=== PATIENT | female | born 1970 | race Caucasian/White ===

== ENCOUNTER → 2017-07-08 18:25 | Outpatient (CLI) | payer OTHER, SELFPAY ==
[2017-07-12 11:03] LABS: HPV APTIMA, High Risk Negative (Negative)
== END ==
PROVIDERS: Visit Provider Nurse Practitioner Women's Health
DX: Z12.4 Encounter for screening for malignant neoplasm of cervix (principal)
CPT/HCPCS: 88175; G0145

== ENCOUNTER → 2017-07-21 08:17 | Outpatient (CLI) | payer OTHER, SELFPAY ==
[2017-07-21 12:56] LABS: Hemoglobin A1c 5.4 % (4.2-6.3)
[2017-07-21 13:05] LABS: Anion Gap 12 (5-15); BUN 10 mg/dL (7-18); BUN/Creat Ratio 10.2 RATIO (10-20); Calcium,Total 8.5 mg/dL (8.5-10.1); Chloride 110 mmol/L (98-107); Creatinine, Serum 0.98 mg/dL (0.55-1.02); EST Glomerular Filtration Rate 65 mL/min (>60); Est Glom Filt Rate - Afr Amer 78 mL/min (>60); Glucose 94 mg/dL (74-106); Potassium 4.1 mmol/L (3.5-5.1); Sodium Level 142 mmol/L (136-145); T4 Free Direct 0.81 ng/dL (0.76-1.46); Thyroid Stim Hormone (TSH) 2.85 uIU/mL (0.358-3.74)
== END ==
PROVIDERS: Family Provider Family Medicine; PCP Family Medicine; Visit Provider Family Medicine
DX: E88.81 Metabolic syndrome and other insulin resistance (principal); R94.6 Abnormal results of thyroid function studies
CPT/HCPCS: 36415; 80048; 83036; 84439; 84443

== ENCOUNTER → 2017-08-12 07:45 | Outpatient (CLI) | payer OTHER, SELFPAY ==
--- NOTE | 2017-08-12 07:45 | DT_ITS ---
This patient was seen during an EMR downtime August 11, 2017 - August 18, 2017. This patient may have a combination of paper and electronic documentation or all paper documentation. All documentation is viewable within the e-chart portion of [facility] for each patient visit.
--- NOTE | 2017-08-12 08:00 | BI_ITS ---
MAMMOGRAPHY - BILATERAL SCREENING REASON FOR EXAM: Female, 47 years old. Routine annual screening examination. PERTINENT HISTORY: FAM HX OF MAT GRANDMOTHER @ AGE 70 - BILAT REDUCTION 2000 - PREV [facility] TECHNIQUE: Digital bilateral breast nikhil (3D mammographic acquisition) in the CC and MLO projections. 2-D mediolateral oblique (MLO) and craniocaudad (CC) views of both breasts were obtained. CAD: Full Field Digital Mammography with Computer Added Detection was performed. COMPARISON: 06/24/2016 FINDINGS: Breast Composition: There are scattered areas of fibroglandular density. There is an asymmetric density at the lateral aspect of the left breast for which further evaluation by spot compression, exaggerated axillary view and ultrasound would be recommended. There are no suspicious calcifications. No other significant abnormalities are identified. BI/SCREENING MAMM (CAD), BILAT IMPRESSION: Further imaging evaluation recommended, as described above. (E) ASSESSMENT CATEGORY: BIRADS Category 0: Incomplete. Need additional imaging evaluation. A letter regarding these results will be sent to the patient by the facility within 30 days. Approximately 10% of breast cancers are not detected by mammography. A normal mammogram should not delay biopsy of a clinically suspicious abnormality. [id number] Electronically Signed: Jad Azul MD at 15:52 EDT Tel , Service support ,
== END ==
PROVIDERS: Family Provider Family Medicine; PCP Family Medicine; Visit Provider Nurse Practitioner Women's Health
DX: Z12.31 Encounter for screening mammogram for malignant neoplasm of breast (principal); N64.89 Other specified disorders of breast
CPT/HCPCS: 77063; 77067

== ENCOUNTER → 2017-09-01 08:51 | Outpatient (CLI) | payer OTHER, SELFPAY ==
--- NOTE | 2017-09-01 08:54 | US_ITS ---
STUDY: ULTRASOUND BREAST - LEFT REASON FOR EXAM: Female, 47 years old. Abnormal screening mammogram. TECHNIQUE: Axial and longitudinal images of the LEFT breast were performed with a high resolution ultrasound transducer. COMPARISON: Comparison is made with prior mammogram dated September 01, 2017 and August 12, 2017. FINDINGS: LEFT Breast: Ultrasound of the upper outer quadrant of the left breast was performed. There is a 7 mm x 9 mm x 3 mm lymph node at the 2:00 suppressed at 7 cm from the nipple. There is also evidence of a 3 mm x 5 mm x 3 mm slightly echogenic nodule at the 3:00 breast a 5 cm some nipple suggestive of a small lipoma. Routine annual mammographic follow-up is recommended. US/Breast Limited Unilateral IMPRESSION: Findings of a small lymph node and small lipoma in the upper outer quadrant as described. Routine mammographic follow-up is recommended. ASSESSMENT CATEGORY: BIRADS Category 2: Benign. A letter regarding these results will be sent to the patient by the facility within 30 days. Electronically Signed: Damon Read MD at 13:07 EDT Tel [phone], Service support ,
--- NOTE | 2017-09-01 09:00 | BI_ITS ---
MAMMOGRAPHY - UNILATERAL DIAGNOSTIC: LEFT BREAST REASON FOR EXAM: Female, 47 years old. Abnormal screening mammogram. PERTINENT HISTORY: Grandmother with breast cancer. TECHNIQUE: Spot views of the left breast in the craniocaudad view as well as an exaggerated craniocaudad view of the left breast were obtained. CAD: Full Field Digital Mammography with Computer Added Detection was performed. COMPARISON: Comparison is made with prior examination dated August 12, 2017. FINDINGS: Breast Composition: There are scattered areas of fibroglandular density. Asymmetry of breast tissue is seen in the upper lateral portion of the left breast. No other significant abnormalities are identified. BI/DIAG MAMM W/CAD, UNILAT IMPRESSION: Asymmetry of breast tissue is seen in the deep upper lateral aspect of the left breast. Correlation with ultrasound is recommended. ASSESSMENT CATEGORY: BIRADS Category 0: Incomplete. Need additional imaging evaluation. A letter regarding these results will be sent to the patient by the facility within 30 days. Approximately 10% of breast cancers are not detected by mammography. A normal mammogram should not delay biopsy of a clinically suspicious abnormality. Electronically Signed: Damon Read MD at 9:59 EDT Tel [phone], Service support ,
== END ==
PROVIDERS: Family Provider Family Medicine; PCP Family Medicine; Visit Provider Nurse Practitioner Women's Health
DX: R92.8 Other abnormal and inconclusive findings on diagnostic imaging of breast (principal)
CPT/HCPCS: 76642; 77065

== ENCOUNTER → 2018-09-04 | Outpatient (CLI) | payer OTHER, SELFPAY ==
[2018-07-20 15:06] VITALS: BMI 34.1
--- NOTE | 2018-09-04 07:18 | BI_ITS ---
MAMMOGRAPHY - BILATERAL SCREENING 3-D TOMOSYNTHESIS REASON FOR EXAM: Female, 48 years old. Bilateral Screening 3-D tomosynthesis PERTINENT HISTORY: No significant family history. TECHNIQUE: 2-D mammograms and 3-D Tomosynthesis of the breast (s) were performed. CAD was performed. COMPARISON: August 12, 2017 FINDINGS: The breast composition is of scattered fibroglandular tissue. No dense spiculated masses or suspicious microcalcifications are identified. No architectural distortion is identified. There is no skin thickening or retraction. There are benign small lymph nodes in both axillary regions. There has been no significant change since the prior study of August 12, 2017. BI/SCREEN MAMM (CAD) W/CRISTINA BILAT IMPRESSION: No mammographic signs of malignancy. Routine yearly mammograms recommended. ASSESSMENT CATEGORY: BIRADS Category 1: Negative. A letter regarding these results will be sent to the patient by the facility within 30 days. FOLLOW UP RECOMMENDATION: Yearly follow up mammogram recommended. (A) Approximately 10% of breast cancers are not detected by mammography. A normal mammogram should not delay biopsy of a clinically suspicious abnormality. Electronically Signed: Angela Pena, at 8:53 EDT Tel , Service support ,
== END | disposition home or self-care (01) ==
LOC: OPBI 07:14
PROVIDERS: Family Provider Family Medicine; PCP Family Medicine; Referring Provider Nurse Practitioner Women's Health; Visit Provider Nurse Practitioner Women's Health
DX: Z12.31 Encounter for screening mammogram for malignant neoplasm of breast (principal)
CPT/HCPCS: 77063; 77067

== ENCOUNTER → 2020-01-19 08:32 | Outpatient (CLI) | payer OTHER, SELFPAY ==
[2019-08-18 12:58] VITALS: BMI 34.1
[2020-01-19 12:14] LABS: Basophil# 0.06 X10^3/uL; Eosinophil# 0.26 X10^3/uL; Eosinophils% 4.2 % (0-5); Hematocrit 45.3 % (37-47); Hemoglobin 14.4 g/dL (12.0-15.0); Lymphocyte % 38.5 % (19-41); Mean Corp Hgb Conc 31.8 g/dL (32-36); Mean Corpuscular Hgb 29.9 pg (27.0-32.0); Monocyte# 0.53 X10^3/uL; Monocyte% 8.5 % (0-10); NRBC Flagged by Analyzer 0 % (0-5); Neutrophil # 2.97 X10^3/uL (2.7-7.7); Neutrophil % 47.6 % (47-70); Platelet Count 279 K/mm3 (150-450); RBC Distribution Width CV 13.5 % (11.6-14.6); RBC Distribution Width SD 46.7 fl (35.1-43.9); Red Blood Count 4.82 M/mm3 (4.2-5.4); White Blood Count 6.2 K/mm3 (4.4-11.0)
[2020-01-19 12:47] LABS: Hemoglobin A1c 5.4 % (3.8-5.6)
[2020-01-19 13:05] LABS: ALB/GLOB Ratio 0.8 RATIO (0.9-2.4); AST(SGOT) 38 U/L (15-37); Alanine Aminotransfer ALT/SGPT 63 U/L (13-56); Albumin, Serum 3.5 g/dL (3.2-5.0); Alkaline Phosphatase 49 U/L (45-117); Anion Gap 6 (5-15); BUN 11 mg/dL (7-18); BUN/Creat Ratio 11.4 RATIO (10-20); Calcium,Total 8.6 mg/dL (8.5-10.1); Chloride 107 mmol/L (98-107); Cholesterol 207 mg/dL (200); Creatinine, Serum 0.97 mg/dL (0.55-1.02); EST Glomerular Filtration Rate 65 mL/min (>60); Est Glom Filt Rate - Afr Amer 79 mL/min (>60); Globulin 4.2 g/dL (2.2-4.2); Glucose 87 mg/dL (74-106); High Density Lipoprotein 50 mg/dL; Potassium 3.9 mmol/L (3.5-5.1); Protein, Total 7.7 g/dL (6.4-8.2); Sodium Level 140 mmol/L (136-145); Thyroid Stim Hormone (TSH) 2.72 uIU/mL (0.358-3.74); Triglycerides 101 mg/dL; Very Low Density Lipoprotein 20 mg/dL (5-40)
== END ==
PROVIDERS: PCP Family Medicine; Visit Provider Family Medicine
DX: I10 Essential (primary) hypertension (principal); E88.81 Metabolic syndrome and other insulin resistance
CPT/HCPCS: 36415; 80053; 80061; 83036; 84443; 85025

== ENCOUNTER → 2020-08-29 12:16 | Outpatient (CLI) | payer OTHER, SELFPAY ==
[2020-08-14 12:55] VITALS: BMI 34.1
--- NOTE | 2020-08-29 12:18 | BI_ITS ---
MAMMOGRAPHY - BILATERAL SCREENING 3-D TOMOSYNTHESIS REASON FOR EXAM: Female, 50 years old. screening for breast cancer PERTINENT HISTORY: No significant family history. TECHNIQUE: 2-D mammograms and 3-D Tomosynthesis of the breast (s) were performed. CAD was performed. COMPARISON: 09/04/2018 FINDINGS: The breast composition is of scattered fibroglandular tissue Scattered benign calcifications are seen. No dense spiculated masses or suspicious microcalcifications are identified. No architectural distortion is identified. There is no skin thickening or retraction. Benign-appearing lymph nodes in the axillary areas bilaterally. There has been no significant change since the prior study 09/04/2018. BI/SCRN MAMM (CAD)W/CRISTINA BILAT IMPRESSION: No mammographic signs of malignancy. Routine yearly mammograms recommended. ASSESSMENT CATEGORY: BIRADS Category 1: Negative. A letter regarding these results will be sent to the patient by the facility within 30 days. FOLLOW UP RECOMMENDATION: Yearly follow up mammogram recommended. (A) Approximately 10% of breast cancers are not detected by mammography. A normal mammogram should not delay biopsy of a clinically suspicious abnormality. Electronically Signed: Angela Pena, at 13:59 EDT Tel , Service support ,
== END ==
PROVIDERS: PCP Family Medicine; Referring Provider Nurse Practitioner Women's Health; Visit Provider Nurse Practitioner Women's Health
DX: Z12.31 Encounter for screening mammogram for malignant neoplasm of breast (principal)
CPT/HCPCS: 77063; 77067

== ENCOUNTER → 2021-11-30 | Outpatient (CLI) | payer OTHER, SELFPAY ==
[2021-11-30 10:04] LABS: Absolute Lymphocyte Count 2.69 X10^3/uL (0.83-4.51); Absolute Neutrophil Count 3.4 X10^3/uL (2.0-7.7); Basophil# 0.02 X10^3/uL; Basophil% 0.3 % (0-1); Eosinophil# 0.02 X10^3/uL; Eosinophils% 0.3 % (0-5); Hematocrit 44.8 % (37-47); Hemoglobin 14.4 g/dL (12.0-15.0); Lymphocyte # 2.69 X10^3/ul (0.83-4.51); Lymphocyte % 39.6 % (19-41); Mean Corp Hgb Conc 32.1 g/dL (32-36); Mean Corpuscular Hgb 30.6 pg (27.0-32.0); Mean Corpuscular Volume 95.1 fL (81-99); Mean Platelet Vol. 11.4 fl (6.2-12.0); Monocyte# 0.61 X10^3/uL; NRBC Flagged by Analyzer 0 % (0-5); Neutrophil # 3.44 X10^3/uL (2.7-7.7); Neutrophil % 50.5 % (47-70); Platelet Count 275 K/mm3 (150-450); RBC Distribution Width CV 13.5 % (11.6-14.6); RBC Distribution Width SD 48.1 fl (35.1-43.9); Red Blood Count 4.71 M/mm3 (4.2-5.4); White Blood Count 6.8 K/mm3 (4.4-11.0)
[2021-11-30 10:35] LABS: ALB/GLOB Ratio 0.9 RATIO (0.9-2.4); AST(SGOT) 25 U/L (15-37); Alanine Aminotransfer ALT/SGPT 39 U/L (13-56); Albumin, Serum 3.5 g/dL (3.2-5.0); Alkaline Phosphatase 49 U/L (45-117); Anion Gap 7 (5-15); BUN 11 mg/dL (7-18); BUN/Creat Ratio 11.6 RATIO (10-20); Calcium,Total 8.7 mg/dL (8.5-10.1); Chloride 109 mmol/L (98-107); Cholesterol 200 mg/dL (200); Creatinine, Serum 0.95 mg/dL (0.55-1.02); EST Glomerular Filtration Rate 66 mL/min (>60); Est Glom Filt Rate - Afr Amer 80 mL/min (>60); Globulin 4.1 g/dL (2.2-4.2); Glucose 95 mg/dL (74-106); High Density Lipoprotein 46 mg/dL; Potassium 4.1 mmol/L (3.5-5.1); Protein, Total 7.6 g/dL (6.4-8.2); Sodium Level 141 mmol/L (136-145); Thyroid Stim Hormone (TSH) 2.48 uIU/mL (0.358-3.74); Triglycerides 102 mg/dL; Very Low Density Lipoprotein 20 mg/dL (5-40)
== END | disposition home or self-care (01) ==
LOC: MTLAB 09:06
PROVIDERS: PCP Family Medicine; Referring Provider Family Medicine; Visit Provider Family Medicine
DX: R94.6 Abnormal results of thyroid function studies (principal); I10 Essential (primary) hypertension; E66.9 Obesity, unspecified
CPT/HCPCS: 36415; 80053; 80061; 84443; 85025

== ENCOUNTER → 2022-01-11 | Outpatient (CLI) | payer OTHER, SELFPAY ==
--- NOTE | 2022-01-11 07:19 | BI_ITS ---
MAMMOGRAPHY - BILATERAL SCREENING REASON FOR EXAM: Female, 51 years old. Routine annual screening examination. PERTINENT HISTORY: Grandmother with breast cancer. History of prior bilateral breast reduction surgery. Occasional bilateral left breast pain. TECHNIQUE: Digital bilateral breast cristina (3D mammographic acquisition) in the CC and MLO projections. 2-D mediolateral oblique (MLO) and craniocaudad (CC) views of both breasts were obtained. CAD: Full Field Digital Mammography with Computer Added Detection was performed. COMPARISON: Comparison is made with prior study dated 08/29/2020 and 09/04/2018. FINDINGS: Breast Composition: There are scattered areas of fibroglandular density. There are no dominant masses or suspicious calcifications. Stable benign-appearing bilateral axillary lymph nodes. No other significant abnormalities are identified. There has been no significant change since the prior study. BI/SCRN MAMM (CAD)W/CRISTINA BILAT IMPRESSION: Stable bilateral screening mammogram. Yearly follow-up mammogram recommended. (A) ASSESSMENT CATEGORY: BIRADS Category 2: Benign. A letter regarding these results will be sent to the patient by the facility within 30 days. Approximately 10% of breast cancers are not detected by mammography. A normal mammogram should not delay biopsy of a clinically suspicious abnormality. [id number] Electronically Signed: Damon Read MD at 9:01 EDT ,
== END | disposition home or self-care (01) ==
LOC: OPBI 07:18
PROVIDERS: PCP Family Medicine; Visit Provider Nurse Practitioner Women's Health
DX: Z12.31 Encounter for screening mammogram for malignant neoplasm of breast (principal); Z80.3 Family history of malignant neoplasm of breast
CPT/HCPCS: 77063; 77067

== ENCOUNTER → 2022-01-16 | Outpatient (CLI) | payer OTHER, SELFPAY ==
--- NOTE | 2022-01-16 13:10 | US_ITS ---
STUDY: ULTRASOUND OF THE FEMALE PELVIS - COMPLETE REASON FOR EXAM: Female, 51 years old. Bleeding LMP: 12/16/2021. TECHNIQUE: Transabdominal and Transvaginal TECHNICAL QUALITY: Adequate. COMPARISON: None. FINDINGS: The uterus is anteverted and is in a midline position. The uterus measures 9.7 cm x 4.9 cm x 5.6 cm. There is a Nabothian cyst of the cervix. The endometrium measures 6.0 mm in thickness, and is hyperechoic. There is no demonstrated endometrial mass. There is a 1.6 cm x 1.4 cm x 1.5 cm uterine fibroid. I.U.D. - The patient does not have an I.U.D. The right ovary is visualized. The right ovary measures 2.3 cm x 2.1 cm x 1.8 cm. There is no right ovarian cyst or ovarian mass. There is no visualized right adnexal mass or complex lesion. There is normal arterial and normal venous vascularity. The left ovary is visualized. The left ovary measures 1.6 cm x 1.9 cm x 0.9 cm. There is no left ovarian cyst or ovarian mass. There is no visualized left adnexal mass or complex lesion. There is normal arterial and normal venous vascularity. There is no fluid in the cul-de-sac. The pre void volume of the bladder was 268 ml. US/Pelvic (Non ) IMPRESSION: Small uterine fibroid. Electronically Signed: Damon Read MD at 14:49 EST ,
== END | disposition home or self-care (01) ==
LOC: OPUS 13:08
PROVIDERS: PCP Family Medicine; Visit Provider Nurse Practitioner Women's Health
DX: N92.0 Excessive and frequent menstruation with regular cycle (principal)
CPT/HCPCS: 76830; 76856

== ENCOUNTER 2022-01-29 17:31 | Outpatient (CLI) | payer OTHER, SELFPAY ==
--- NOTE | 2022-01-29 15:15 | EMB_PTH ---
PATIENT: SHANDA CUMMINGS LOC: [facility] U#:[id number] AGE/SX: 51/F ROOM: RE01/29/[address]: FELIPA Lowery : 1970 BED: DIS: 01/29/2022 SPEC #: [id number] RECD: 01/29/22 17:27 STATUS: BRENDAN REQ #: [id number] TREVOR: 01/29/22 15:[address]: Susannah Arroyo NP DEPT: SURGICAL PATHOLOGY RECD BY: Heather Richard ENTERED: 01/30/22 08:47 SP TYPE: ENDOM BX/C FLAVIO DR: Dr. Jm Lea MD Tissues: Endometrium, NOS Procedures: Surgery Specimen Level IV HEADER OPERATION: Endometrial biopsy PRE-OP DIAGNOSIS: Abnormal uterine bleeding TISSUE SUBMITTED: Endometrial tissue MICROSCOPIC DIAGNOSIS Endometrial biopsy: Secretory endometrium. TERRY:silvino 02/01/2022 MICROSCOPIC DESCRIPTION Slides are reviewed. GROSS DESCRIPTION Received is one container labeled with the patient's name and not further designated. The specimen consists of multiple fragments of hemorrhagic soft tissue that in aggregate measure 2.5 x 1.5 x 0.2 cm. The specimen is totally submitted in one cassette. / SJ:silvino 01/30/2022 TC:4 CPT: 13159
== END 2022-01-29 23:59 | disposition home or self-care (01) ==
PROVIDERS: PCP Family Medicine; Visit Provider Nurse Practitioner Women's Health
DX: N93.9 Abnormal uterine and vaginal bleeding, unspecified (principal)
CPT/HCPCS: 88305

== ENCOUNTER 2022-04-01 09:18 | Emergency (ER) | payer OTHER, SELFPAY ==
[2022-04-01 09:19] VITALS: BP 155/105; PULSE 87; RESP 17; TEMP 35.6; O2SAT 100; BMI 36.3
--- NOTE | 2022-04-01 09:41 | CT_ITS ---
STUDY: CT ABDOMEN AND PELVIS WITH CONTRAST REASON FOR EXAM: Female, 51 years old. Left lower quadrant abdominal pain RADIATION DOSAGE (If Supplied By Facility): CTDIvol = ( 18.19 ) mGy, DLP = ( 1241.18 ) mGycm TECHNIQUE: Transaxial images were obtained from the dome of the diaphragm to the symphysis pubis without oral contrast. IV 100mL Isovue-370 was administered. Sagittal and coronal images were reconstructed. Individualized dose optimization techniques were used for this CT. COMPARISON: None. FINDINGS: The visualized lung bases are unremarkable. The visualized portions of the heart are within normal limits. There is decreased attenuation of the liver consistent with steatosis. There is a 1.4 cm x 1.1 cm well-defined hypodense nodule in the anterior aspect of the midportion of the right lobe of the liver. Correlation with ultrasound is recommended for further evaluation. Normal gallbladder and extrahepatic biliary system. Normal spleen. Normal pancreas. Normal bilateral adrenal glands. There is a 1.4 cm cyst in the mid lateral aspect of the right kidney. There is a 5.7 cm x 5.2 cm cyst in the upper medial portion of the left kidney. There is a small hiatal hernia. Normal small intestine. There are scattered colonic diverticula consistent with diverticulosis. The appendix is visualized and appears normal. Normal abdominal aorta. Normal inferior vena cava. Normal retroperitoneum. Normal urinary bladder. There is a 3.9 cm x 3.7 cm cyst in the left adnexa. Bilateral tubal ligation clips are seen. Normal abdominal wall. Normal osseous structures. CT/Abdomen/Pelvis W IV Cont ONLY IMPRESSION: Fatty infiltration of the liver. 1.4 cm x 1.1 cm well-defined hypodense nodule in the anterior aspect of the midportion of the right lobe of the liver. Correlation with ultrasound is recommended. Bilateral renal cysts more prominent on the left side. 3.9 signed by 3.7 cm cyst in the left adnexa. Electronically Signed: Damon Read MD at 12:10 EST ,
[2022-04-01 10:21] LABS: Bacteria 0 SEEN /hpf (None Seen); Mucous, Urine 0 SEEN /hpf (<or=2+)
[2022-04-01 10:26] LABS: Glucose, Dipstick Normal (Normal); Ketone-Dipstick Negative (Negative); Leukocyte Esterase-Dipstick 25 /ul (Negative); Nitrite-Dipstick Negative (Negative); Occult Blood-Urine 50 /ul (Negative); Protein-Dipstick Negative (Negative); Specific Gravity, Urine 1.015 (1.002-1.030); Urine Bilirubin Dipstick Negative (Negative); Urine Urobilinogen Normal (Normal); Urine pH 6.5 (5.0 - 8.0)
[2022-04-01] MEDS: 0.9% Normal Saline 1,000 ML 250 ML IV (10:34)
[2022-04-01 10:36] LABS: Color, Urine Yellow (Yellow); Urine Clarity Clear (Clear)
[2022-04-01 10:44] LABS: Absolute Lymphocyte Count 2.35 X10^3/uL (0.83-4.51); Absolute Neutrophil Count 5.5 X10^3/uL (2.0-7.7); Basophil# 0.04 X10^3/uL; Basophil% 0.5 % (0-1); Eosinophil# 0.06 X10^3/uL; Eosinophils% 0.7 % (0-5); Hemoglobin 14.4 g/dL (12.0-15.0); Lymphocyte # 2.35 X10^3/ul (0.83-4.51); Lymphocyte % 27.2 % (19-41); Mean Corpuscular Volume 93.8 fL (81-99); Mean Platelet Vol. 11.2 fl (6.2-12.0); Monocyte# 0.64 X10^3/uL; Monocyte% 7.4 % (0-10); NRBC Flagged by Analyzer 0 % (0-5); Neutrophil # 5.52 X10^3/uL (2.7-7.7); Neutrophil % 63.9 % (47-70); Platelet Count 254 K/mm3 (150-450); RBC Distribution Width CV 13.4 % (11.6-14.6); RBC Distribution Width SD 46.1 fl (35.1-43.9); White Blood Count 8.6 K/mm3 (4.4-11.0)
--- NOTE | 2022-04-01 11:01 | EDS_ITS ---
HPI HPI - GI History of Present Illness Chief Complaint: Abd Pain Detail of Chief Complaint: Left-sided abdominal pain Informant: patient Abdominal Pain/Flank Pain Onset: Yesterday Context: Sudden Onset Timing: Continuous and Waxes and wanes Quality: Aching Location: LUQ and LLQ Current Severity: Mild Maximum Severity: Severe Worsened by: Car ride and Movement Relieved by: Nothing Nausea/Vomiting/Emesis GI Symptom: Positive for Nausea; Negative for Vomiting Diarrhea/Melena/Hematochezia GI Symptom: Positive for - (Patient denies constipation.); Negative for Diarrhea, Melena or Hematochezia Associated Symptoms Associated Symptoms: Negative for Dysuria, Frequency, Hematuria or Urgency Narrative Narrative: Patient is a 51-year-old woman who presented because of left-sided pain. She denies history of diverticulosis or diverticulitis. She denies history of renal ureterolithiasis. She denies dysuria, frequency, urgency or hematuria. She states change in position wearing tight clothing sitting up causes her increased pain. She also makes the comment that she cannot find a position of comfort. She denies fever, chills night sweats. She does report nausea. She denies vomiting, diarrhea or constipation. She denies history of ovarian cyst. She is status post bilateral tubal ligation. Patient office visit authored by Susannah Arroyo indicates patient was seen for menorrhagia with regular cycles. She did have an ultrasound which was unremarkable. Patient denies leg pain, swelling or discoloration. Patient denies myalgias or arthralgias. Prior similar symptoms: No Recent Illness/Hospitalization: No PFSH PFSH Home Medications cetirizine 10 mg tablet (24Hour Allergy) 10 mg PO DAILY PRN ALLERGIES 08/14/20 [History Last Taken Unknown] lisinopril 2.5 mg tablet 2.5 mg PO DAILY 08/14/20 [History Last Taken Unknown] mv-min-vit C-ascorb Fz-Avj-Icb-herb #124 333 mg-1.7 mg chewable tablet (Airborne (ascorbate sodium)) tab PO 08/14/20 [History Last Taken Unknown] escitalopram oxalate 10 mg tablet (Lexapro) 10 mg PO DAILY 01/02/22 [History Last Taken Unknown] fluticasone propionate 50 mcg/actuation nasal spray,suspension (Flonase Allergy Relief) 1 spray intranasal DAILY 01/02/22 [History Last Taken Unknown] norethindrone (contraceptive) 0.35 mg tablet (Lulu) 0.35 mg PO QDAY #84 tabs 01/02/22 [Rx Last Taken Unknown] Allergy/AdvReac Type Severity Reaction Status Date / Time nitrofurantoin Allergy Mild rash Verified 04/01/22 09:19 [From Macrodantin] penicillin V Allergy Mild vomiting, Verified 04/01/22 09:19 diarrhea trimethoprim Allergy Mild rash Verified 04/01/22 09:19 Family History Mother Diabetes Father Diabetes Hypertension Heart disease Surgical History Status post breast reduction Tubal ligation status Social History (Updated 04/01/22 @ 11:[address] 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 [employer] ED Constitutional Constitutional ED: Denies chills, fever(s), subjective, sweats or weight loss ENT ENT ED: Denies ear pain, rhinorrhea or sore throat Cardiovascular Cardiovascular: Denies chest pain or palpitations Respiratory/Chest Respiratory/Chest: Denies cough, dyspnea or dyspnea on exertion Gastrointestinal Gastrointestinal: Reports abdominal pain and nausea; Denies constipation, diarrhea, melena or vomiting Genitourinary Genitourinary ED: Reports LMP (females 10-50) Details: Comment: (Approximately 2 weeks ago., Patient is status post bilateral tubal ligation); Denies dysuria, hematuria or urinary frequency Musculoskeletal Musculoskeletal: Denies arthralgias, back pain, myalgias or neck pain Integumentary Denies Abrasions or rash Neurologic Neurologic: Denies headache(s), paresthesias or weakness Psychiatric Psychiatric: Denies anxiety Hematologic/Lymphatic Hematologic/Lymphatic: Denies easy bleeding, easy bruising or lymphadenopathy EXAM Physical Exam Const Vital Signs: 04/01/22 09:19 04/01/22 14:34 Temperature 96.0 F L 98.5 F Temperature Source Temporal Oral Pulse Rate 87 83 Respiratory Rate 17 18 Blood Pressure 155/105 H 127/77 H Blood Pressure Mean 121 93 Pulse Ox 100 99 Oxygen Delivery Method Room Air Room Air Positive well nourished, well developed and obese General Appearance ED: well developed and NAD; Negative for pallor Nutritional Appearance: obese HEENT Reports moist mucous membranes HEENT Narrative: Nares patent. Ears normal. Mucosa moist. No abnormality the posterior pharynx. normocephalic and atraumatic Eyes PERRL and EOMs intact bilaterally General Eye ED: Negative for pale conjunctiva or scleral icterus Neck no lymphadenopathy, supple and no JVD Resp normal respiratory effort and clear to auscultation bilaterally Cardio regular rate, regular rhythm, S1 normal heart sound, S2 normal heart sound and no murmurs GI non-distended and no masses; Negative for non-tender GI Narrative: Patient has percussion tenderness left lower quadrant. There is guarding. Bowel sounds are diminished. Patient complains of pain left lower quadrant assessing for CVA tenderness. Auscultation: hypoactive bowel sounds Palpation: soft, tender, guarding and rebound tenderness present; Negative for rigid, hepatomegaly, splenomegaly, hernia, mass or pulsatile mass Back/Spine no CVA tenderness Cervical Spine: Negative for cervical spine tenderness Thoracic Spine / Upper Back: Negative for thoracic spinal tenderness Lumbar Spine / Lower Back: Negative for lumbar spinal tenderness Extremity full ROM General Extremety ED: Negative for edema or tenderness General Extremity: Negative for edema Neuro CN's II-XII intact bilaterally, moves all extremities and no sensory deficits noted Sensorium / Orientation: alert Psych mental status grossly normal and thought process normal Skin no wounds General Skin Exam: Negative for jaundice or pallor Lesions: no lesions Rashes: no rashes MDM MDM MDM Narrative Medical decision making narrative: With patient having peritoneal findings left lower quadrant concerned that this may represent diverticulitis. Unusual presentation for ureteral stone causing obstruction infection, need to consider malignancy in light of her age. Also need to consider gynecologic pathology in light of her history of problems with menstruating and ovarian cyst. Office notes for last OB visit were reviewed and summarized in the HPI near Will obtain CBC, electrolyte panel, UA and CT to evaluate patient's left lower quadrant abdominal pain. Lab Data Attestation: I reviewed the patient's lab results. Lab results narrative: CBC is unremarkable. Basic metabolic panel is unremarkable. UA is unremarkable. Macro was positive for leukoesterase, 25 and 0-5 WBCs with no bacteria. Labs: Laboratory Results - last 24 hr 04/01/22 04/01/22 04/01/22 10:15 10:30 10:30 WBC 8.6 RBC 4.80 Hgb 14.4 Hct 45.0 MCV 93.8 MCH 30.0 MCHC 32.0 RDW Std Deviation 46.1 H RDW Coeff of Juan Jose 13.4 Plt Count 254 MPV 11.2 Immature Gran % (Auto) 0.300 Neut % (Auto) 63.9 Lymph % (Auto) 27.2 Dane % (Auto) 7.4 Eos % (Auto) 0.7 Baso % (Auto) 0.5 Absolute Neuts (auto) 5.5 Absolute Lymphs (auto) 2.35 Nucleated RBC % 0 Sodium 140 Potassium 3.9 Chloride 109 H Carbon Dioxide 23.0 Anion Gap 8 BUN 10 Creatinine 0.88 Estim Creat Clear Calc 68.06 Est GFR (MDRD) Af Amer 87 Est GFR (MDRD) Non-Af 72 BUN/Creatinine Ratio 11.3 Glucose 97 Calcium 9.2 Urine Color Yellow Urine Clarity Clear Urine pH 6.5 Ur Specific [place] 1.015 Urine Protein Negative Urine Glucose (UA) Normal Urine Ketones Negative Urine Occult Blood 50 H Urine Nitrite Negative Urine Bilirubin Negative Urine Urobilinogen Normal Ur Leukocyte Esterase 25 H Urine RBC 0-5 SEEN Urine WBC 0-5 SEEN Ur Squamous Epith Cells 0-5 SEEN Urine Bacteria 0 SEEN Urine Mucus 0 SEEN Radiography Diagnostic Testing: Clinical Impression(s) from Imaging Studies Abdomen/Pelvis CT 04/01/22 09:41 IMPRESSION: Fatty infiltration of the liver. 1.4 cm x 1.1 cm well-defined hypodense nodule in the anterior aspect of the midportion of the right lobe of the liver. Correlation with ultrasound is recommended. Bilateral renal cysts more prominent on the left side. 3.9 signed by 3.7 cm cyst in the left adnexa. Electronically Signed: Damon Read MD at 12:10 EST , Abdomen Ultrasound 04/01/22 12:52 IMPRESSION: Mild hepatomegaly. Fatty infiltration of the liver. 1.1 cm x 1.1 cm x 0.9 sinus slightly hyperechoic solid nodule in the anterior right lobe of the liver suggestive of a small hemangioma. Right renal cyst. Electronically Signed: Damon Read MD at 14:55 EST , CT of the abdomen pelvis with IV contrast reveals a large solitary left renal cyst. There appears to be inflammatory changes left lower quadrant. Awaiting formal read by radiologist. Treatment and Re-Evaluation Narrative: She was informed of the CAT scan result and the ultrasound result. Plan is to discharge to home. Discharge Plan Triage Chief Complaint: Abd Pain ED Provider: Pelon Trevino Dx/Rx/DC Orders Clinical Impression: Cyst of left ovary, HTN (hypertension), Renal cysts, acquired, bilateral, Hemangioma of liver Instructions: ED Ovarian Cyst Prescriptions: No Action lisinopril 2.5 mg tablet 2.5 mg PO DAILY cetirizine [24Hour Allergy] 10 mg tablet 10 mg PO DAILY PRN (Reason: ALLERGIES) Airborne (ascorbate sodium) 333-1.7 mg tablet,chewable PO escitalopram oxalate [Lexapro] 10 mg tablet 10 mg PO DAILY fluticasone propionate [Flonase Allergy Relief] 50 mcg/actuation spray,suspension 1 spray intranasal DAILY Rx Instructions: administer into each nostril norethindrone (contraceptive) [Lulu] 0.35 mg tablet 0.35 mg PO QDAY Qty: 84 4RF Rx Instructions: start day 1 of menstrual cycle Primary Care Provider: Jae Velazco Referrals: Jae Velazco MD [Primary Care Provider] - As Needed Activity Restrictions/Additional Instructions: Call your OB for follow-up in 1 to 2 weeks. Disposition Disposition: Home, Self Care
[2022-04-01 11:04] LABS: Red Blood Cells-Urine 0-5 SEEN /hpf (0-5); Squamous Epithelial Cells - UA 0-5 SEEN /hpf (5-10); White Blood Cells 0-5 SEEN /hpf (0-5)
[2022-04-01 11:12] LABS: Anion Gap 8 (5-15); BUN 10 mg/dL (7-18); BUN/Creat Ratio 11.3 RATIO (10-20); Calcium,Total 9.2 mg/dL (8.5-10.1); Chloride 109 mmol/L (98-107); Creatinine, Serum 0.88 mg/dL (0.55-1.02); EST Glomerular Filtration Rate 72 mL/min (>60); Est Glom Filt Rate - Afr Amer 87 mL/min (>60); Estimated Creatinine Clearance 68.06 ml/min; Glucose 97 mg/dL (74-106); Potassium 3.9 mmol/L (3.5-5.1); Sodium Level 140 mmol/L (136-145)
--- NOTE | 2022-04-01 12:52 | US_ITS ---
STUDY: ABDOMINAL ULTRASOUND - RIGHT UPPER QUADRANT REASON FOR VISIT: Female, 51 years old Nodule noted right lobe liver on CT TECHNIQUE: Ultrasound evaluation of the right upper quadrant was performed with real-time and static west-scale imaging. TECHNICAL QUALITY: Adequate. COMPARISON: Comparison is made with prior CT scan the abdomen and pelvis done earlier today. FINDINGS: Liver: The liver measures 18.5 cm. There is increased echogenicity consistent with fatty infiltration. The bile ducts are within normal limits. There is hepatic color flow. The direction of portal flow is hepatopetal. There is evidence of a 1.1 cm x 1.1 cm by 0.9 cm slightly hyperechoic solid nodule in the anterior right lobe of the liver. This corresponds with the CT findings. This is not a typical cyst. This most likely represents an hemangioma. Gallbladder: Normal distended gallbladder. The gallbladder wall measures 1.8 mm. There is a negative sonographic Cook''s sign. There is no pericholecystic fluid. There are no gallstones. Common Bile Duct (C.B.D.): The common bile duct measures 6.4 mm. Pancreas: Normal size of the head, body and tail of the pancreas. There is normal echogenicity of the pancreas. There is no demonstrated pancreatic mass or cyst. Right Kidney: Normal size of the right kidney. The right kidney measures 12.9 cm x 5.7 cm x 4.3 cm. Normal renal cortex. The right cortex measures 1.1 cm. There is a 1.6 cm x 1.7 cm x 1 cm cyst in the mid aspect of the right kidney. There is no right hydronephrosis. US/Abdomen Limited IMPRESSION: Mild hepatomegaly. Fatty infiltration of the liver. 1.1 cm x 1.1 cm x 0.9 sinus slightly hyperechoic solid nodule in the anterior right lobe of the liver suggestive of a small hemangioma. Right renal cyst. Electronically Signed: Damon Read MD at 14:55 EST ,
[2022-04-01 14:34] VITALS: BP 127/77; PULSE 83; RESP 18; TEMP 36.9; O2SAT 99
[2022-04-01 16:35] VITALS: BP 130/71; PULSE 70; RESP 15; O2SAT 97
== END 2022-04-01 16:43 | disposition home or self-care (01) ==
PROVIDERS: Emergency Provider Emergency Medicine; PCP Internal Medicine; Visit Provider Emergency Medicine
DX: N83.202 Unspecified ovarian cyst, left side (principal); N28.1 Cyst of kidney, acquired; D18.09 Hemangioma of other sites; I10 Essential (primary) hypertension; E66.9 Obesity, unspecified; Z68.36 Body mass index [BMI] 36.0-36.9, adult; Z79.899 Other long term (current) drug therapy
CPT/HCPCS: 74177; 76705; 80048; 81001; 85025; 99284; J7030; Q9967

== ENCOUNTER → 2022-04-11 | Outpatient (CLI) | payer OTHER, SELFPAY ==
--- NOTE | 2022-04-11 08:04 | US_ITS ---
STUDY: ULTRASOUND OF THE FEMALE PELVIS - COMPLETE REASON FOR EXAM: Female, 51 years old. LT OVARIAN CYST/PAIN LMP: Patient is postmenopausal. TECHNIQUE: Transabdominal and Transvaginal TECHNICAL QUALITY: Adequate. COMPARISON: Comparison is made with prior CT scan of abdomen and pelvis dated 04/01/2022 and prior sonogram of the pelvis dated 01/16/2022. FINDINGS: The uterus is anteverted and is in a midline position. The uterus measures 9.3 cm x 5.9 cm x 5.4 cm. Normal uterine cervix. The endometrium is thickened for a postmenopausal patient and measures 6.1 mm in thickness, and is hyperechoic. There is no demonstrated endometrial mass. Uterine fibroids. The largest is in the fundal portion of the uterus measuring 2.1 cm x 2 cm x 1.3 cm. I.U.D. - The patient does not have an I.U.D. The right ovary is visualized. The right ovary measures 2.3 cm x 2.3 cm x 2.4 cm. There is no right ovarian cyst or ovarian mass. There is no visualized right adnexal mass or complex lesion. There is normal arterial and normal venous vascularity. The left ovary is visualized. The left ovary measures 3.7 cm x 3.8 cm x 3.6 cm. There is a 2.9 cm x 3.2 cm x 3.4 cm left ovarian cyst. There is no visualized left adnexal mass or complex lesion. There is normal arterial and normal venous vascularity. There is no fluid in the cul-de-sac. The pre void volume of the bladder was 223 ml.. US/Pelvic (Non ) IMPRESSION: Uterine fibroids. 2.97 x 3.27 x 3.4 cm left ovarian cyst. Electronically Signed: Damon Read MD at 13:13 EST ,
== END | disposition home or self-care (01) ==
PROVIDERS: PCP Internal Medicine; Referring Provider Nurse Practitioner Women's Health; Visit Provider Nurse Practitioner Women's Health
DX: R10.2 Pelvic and perineal pain (principal); N83.202 Unspecified ovarian cyst, left side
CPT/HCPCS: 76830; 76856; 93976

== ENCOUNTER → 2022-09-27 | Outpatient (CLI) | payer OTHER, SELFPAY ==
[2022-09-27 13:14] LABS: ALB/GLOB Ratio 0.9 RATIO (0.9-2.4); AST(SGOT) 21 U/L (15-37); Alanine Aminotransfer ALT/SGPT 38 U/L (13-56); Albumin, Serum 3.5 g/dL (3.2-5.0); Alkaline Phosphatase 47 U/L (45-117); Anion Gap 6 (5-15); BUN 12 mg/dL (7-18); BUN/Creat Ratio 13.1 RATIO (10-20); Calcium,Total 9.2 mg/dL (8.5-10.1); Chloride 108 mmol/L (98-107); Creatinine, Serum 0.92 mg/dL (0.55-1.02); EST Glomerular Filtration Rate 68 mL/min (>60); Est Glom Filt Rate - Afr Amer 83 mL/min (>60); Globulin 3.7 g/dL (2.2-4.2); Glucose 97 mg/dL (74-106); Potassium 3.9 mmol/L (3.5-5.1); Protein, Total 7.2 g/dL (6.4-8.2); Sodium Level 141 mmol/L (136-145)
== END | disposition home or self-care (01) ==
LOC: BIMLAB 11:27
PROVIDERS: PCP Internal Medicine; Referring Provider Internal Medicine; Visit Provider Internal Medicine
DX: I10 Essential (primary) hypertension (principal)
CPT/HCPCS: 36415; 80053

== ENCOUNTER → 2022-12-16 | Outpatient (CLI) | payer OTHER, SELFPAY ==
[2022-12-16 15:13] LABS: Absolute Lymphocyte Count 3.77 X10^3/uL (0.83-4.51); Absolute Neutrophil Count 4.3 X10^3/uL (2.0-7.7); Basophil# 0.03 X10^3/uL; Basophil% 0.3 % (0-1); Eosinophil# 0.11 X10^3/uL; Eosinophils% 1.2 % (0-5); Hematocrit 43.8 % (37-47); Hemoglobin 14.1 g/dL (12.0-15.0); Lymphocyte # 3.77 X10^3/ul (0.83-4.51); Lymphocyte % 41.9 % (19-41); Mean Corp Hgb Conc 32.2 g/dL (32-36); Mean Corpuscular Hgb 30.1 pg (27.0-32.0); Mean Corpuscular Volume 93.6 fL (81-99); Monocyte% 8.9 % (0-10); NRBC Flagged by Analyzer 0 % (0-5); Neutrophil # 4.26 X10^3/uL (2.7-7.7); Neutrophil % 47.5 % (47-70); Platelet Count 272 K/mm3 (150-450); RBC Distribution Width CV 13.3 % (11.6-14.6); RBC Distribution Width SD 45.4 fl (35.1-43.9); Red Blood Count 4.68 M/mm3 (4.2-5.4)
[2022-12-16 15:52] LABS: AST(SGOT) 18 U/L (15-37); Alanine Aminotransfer ALT/SGPT 39 U/L (13-56); Albumin, Serum 3.8 g/dL (3.2-5.0); Alkaline Phosphatase 50 U/L (45-117); Anion Gap 8 (5-15); BUN 9 mg/dL (7-18); Calcium,Total 8.7 mg/dL (8.5-10.1); Chloride 106 mmol/L (98-107); Creatinine, Serum 0.82 mg/dL (0.55-1.02); EST Glomerular Filtration Rate 78 mL/min (>60); Est Glom Filt Rate - Afr Amer 94 mL/min (>60); Globulin 3.7 g/dL (2.2-4.2); Glucose 84 mg/dL (74-106); Potassium 3.6 mmol/L (3.5-5.1); Protein, Total 7.5 g/dL (6.4-8.2); Sodium Level 136 mmol/L (136-145)
[2022-12-16 15:53] LABS: Vitamin B12 471 pg/mL (211-911)
== END | disposition home or self-care (01) ==
LOC: BIMLAB 14:27
PROVIDERS: PCP Internal Medicine; Referring Provider Internal Medicine; Visit Provider Internal Medicine
DX: K14.6 Glossodynia (principal); I10 Essential (primary) hypertension
CPT/HCPCS: 36415; 80053; 82607; 85025

== ENCOUNTER 2023-02-04 15:00 | Outpatient (RCR) | payer OTHER, SELFPAY ==
--- NOTE | 2022-12-17 11:47 | HP.PTEVAL ---
Patient's Visit Information Visit Information Visit Information: SHANDA CUMMINGS is a 52 year old F referred to Physical Therapy by KECIA BOONE with a diagnosis of PF itis, equinus contracture. Date of Evaluation: 12/17/22 Physical Therapist: Jorge Salinas, DPT, OCS, CSCS Visit Plan Frequency: 2x /Week Duration: 4-6 Weeks Plan: 2x/week for 4-6 weeks for... 1. STM PF and gastroc soleus rollout. stretch same, ankle mobs grade 4 for ROM 2. consider orhtotics and pt to use gel heel cups and night splints 3. eccentric strength ankles , band strength ankles consisder US to B heel nonthermal Subjective Subjective: Has PF L 3 yrs and R two years on and off. Went [facility]. Pain is in heel B . has high arch B. pain ranges from 5/10 , Morning is 7/10 for a few time in the am. End of day gets worse again. 0/10 in bed. 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 Hurts to get up from sitting if sits too long. Has heel cups and stretches Hs and wall gastroc stretches, 10 sec hold and 5 sec on HS. Helps a little. has gel heel cup. Will get better heel cups from doctor. No other . Night splint when really bad. Sleep is OK. Activitiy throughout day is effected as she chooses not to walk at times. Regular ex: no Hobbies: grandkids, ages 7, 5 and 1 yo. basic ADLS getting done. They hurt. Pain B heel: Pain Intensity (Out of 10): 5 Pain Intensity Range: 3 and 7 Objective Objective: Walks independently into PT in heel boots without antalgia. Transfer chair and bed I. Tender to touch B heels at PF attachment and medially moderately L >R Tightness obvious in gastroc and soleus in both feel(-2 DF knee straight and 0 knee bent) Other ankle AROM WFL. Obvious pes cavus in B feet in standing. Equinus in both ankles. Avoiding heel strike when ambulating barefoot today. reflexes patella and achilles 2/3 sensation LE WNL to gross light touch. Strength ankles and feet 4/5 without pain. - talar tilt B Balance/Special Test Scores Lower Extremity Functional Score: 44 Goals Goal 1:: I appropr management of condition with stretching, ROM and strength and outside DME as needed. Goal Time Frame: 4-6 Weeks Goal 2:: I appropriate HEP to manage PFitis Goal Time Frame: 4-6 Weeks Goal 3:: pain 0-1/10 at all times and 80% better Goal Time Frame: 4-6 Weeks Goal 4:: start exercise without increased pain Goal Time Frame: 4-6 Weeks Rehabilitation Potential Physical Therapy Diagnosis: Tightness in feet and ankles and lack of ROM contributing to PF pain limiting comfort Rehabilitation Potential: Good Anticipated Interventions Patient/Client Instruction: Educate patient on: Condition and Plan of Care For the Purpose of:: To decrease pain, To increase ROM, To improve nutrient delivery to tissue and To improve muscle performance and motor function Therapeutic Exercise to Include: Strength training, Coordination, Flexibilty training, Passive ROM and Active ROM For the Purpose of:: To decrease pain, To increase ROM, To improve nutrient delivery to tissue, To improve muscle performance and motor function, To increase tolerance to activity/condition/position and To improve gait and locomotor functions Manual Therapy Techniques to Include: Mobilization, Passive ROM and Soft tissue mobilization For the Purpose of:: To increase ROM Orthotics: Shoe insert For the Purpose of:: To decrease pain Cryotherapy (ice pack, ice massage): Yes Ultrasound (thermal/non thermal): Yes (nonthermal) For the Purpose of:: To decrease pain, To decrease swelling/inflammation, To increase ROM and To improve nutrient delivery to tissue Text: Thank you for the opportunity to evaluate your patient. For Medicare and Medicare HMO plans, please review the plan of care and approve it. It will need to be FAXED BACK to us at [phone] for Medicare purposes. For Medicare only, by signing this I certify the plan of care. Please let me know if there are questions or concerns regarding this plan of care. Physician Signature: Date:
--- NOTE | 2023-02-04 15:41 | HP.PTDCSUM ---
Discharge Summary D/C summary: It has been my pleasure to treat SHANDA CUMMINGS referred by KECIA BOONE, with the diagnosis of PF itis, equinus contracture for a total of 12 visit(s). Discharge Date: 02/04/23 Please see the following information for a summary of their discharge status. Subjective Subjective: I feel OK. In orthotics 3 hrs day. They feel good in arch. They help alleviate pain. To doctor next Friday. Pain this weekend was not bad but did not do alot , /10 Avoids walking on Treadmill. 10 today Pain B heel: Pain Intensity (Out of 10): 4 Overall Improvement % Improvement: 50 Objective Objective/Function: 4 degrees DF B , still some tenderness in PF at calcaneal origin B. Walking well today. Goals Goal 1:: I appropr management of condition with stretching, ROM and strength and outside DME as needed. Goal Progress: Goal Met Goal 2:: I appropriate HEP to manage PFitis Goal Progress: Goal Met Goal 3:: pain 0-1/10 at all times and 80% better Goal Progress: Progressing Goal 4:: start exercise without increased pain Goal Progress: Progressing Plan Plan: d/c and pt to visit doctor next week for other options. D/C Information d/c sentence: If there are questions or concerns regarding this patient's physical therapy, please feel free to call me at [phone]. Thank you for the referral of this patient. Sincerely, Jorge Salinas, DPT, OCS, CSCS Balance/Gait/Functional tests Balance/Special Test Scores Lower Extremity Functional Score: 58 Improvement % Improvement: 50
== END 2023-02-04 19:00 | disposition home or self-care (01) ==
LOC: PT 15:00
PROVIDERS: PCP Internal Medicine
DX: M24.573 Contracture, unspecified ankle (principal); M72.2 Plantar fascial fibromatosis
CPT/HCPCS: 97110; 97124; 97140; 97161; 97164; 97530; 97763

== ENCOUNTER → 2023-02-20 | Outpatient (CLI) | payer OTHER, SELFPAY ==
[2023-02-25 14:09] LABS: HPV APTIMA, High Risk Negative (Negative)
== END | disposition home or self-care (01) ==
PROVIDERS: PCP Internal Medicine; Visit Provider Nurse Practitioner Women's Health
DX: Z12.4 Encounter for screening for malignant neoplasm of cervix (principal)
CPT/HCPCS: 87624; 88175; G0145

== ENCOUNTER → 2023-10-06 | Outpatient (CLI) | payer OTHER, SELFPAY ==
[2023-10-06 12:18] LABS: Absolute Lymphocyte Count 3.32 X10^3/uL (0.83-4.51); Absolute Neutrophil Count 3.4 X10^3/uL (2.0-7.7); Basophil# 0.05 X10^3/uL; Basophil% 0.7 % (0-1); Eosinophil# 0.17 X10^3/uL; Eosinophils% 2.3 % (0-5); Hematocrit 45.2 % (37-47); Hemoglobin 14.6 g/dL (12.0-15.0); Lymphocyte # 3.32 X10^3/ul (0.83-4.51); Mean Corp Hgb Conc 32.3 g/dL (32-36); Mean Corpuscular Hgb 29.5 pg (27.0-32.0); Mean Corpuscular Volume 91.3 fL (81-99); Mean Platelet Vol. 11.9 fl (6.2-12.0); Monocyte# 0.55 X10^3/uL; Monocyte% 7.3 % (0-10); NRBC Flagged by Analyzer 0 % (0-5); Neutrophil # 3.44 X10^3/uL (2.7-7.7); Neutrophil % 45.4 % (47-70); Platelet Count 250 K/mm3 (150-450); RBC Distribution Width CV 13.9 % (11.6-14.6); RBC Distribution Width SD 46.6 fl (35.1-43.9); Red Blood Count 4.95 M/mm3 (4.2-5.4); White Blood Count 7.6 K/mm3 (4.4-11.0)
[2023-10-06 12:24] LABS: ALB/GLOB Ratio 0.9 RATIO (0.9-2.4); AST(SGOT) 37 U/L (15-37); Alanine Aminotransfer ALT/SGPT 50 U/L (13-56); Albumin, Serum 3.5 g/dL (3.2-5.0); Alkaline Phosphatase 52 U/L (45-117); Anion Gap 6 (5-15); BUN 10 mg/dL (7-18); BUN/Creat Ratio 11.2 RATIO (10-20); Chloride 108 mmol/L (98-107); Cholesterol 220 mg/dL (200); Creatinine, Serum 0.89 mg/dL (0.55-1.02); EST Glomerular Filtration Rate 71 mL/min (>60); Est Glom Filt Rate - Afr Amer 85 mL/min (>60); Glucose 101 mg/dL (74-106); High Density Lipoprotein 44 mg/dL; Protein, Total 7.5 g/dL (6.4-8.2); Sodium Level 138 mmol/L (136-145); Triglycerides 159 mg/dL; Very Low Density Lipoprotein 32 mg/dL (5-40)
== END | disposition home or self-care (01) ==
LOC: BIMLAB 11:04
PROVIDERS: PCP Internal Medicine; Referring Provider Internal Medicine; Visit Provider Internal Medicine
DX: Z00.00 Encounter for general adult medical examination without abnormal findings (principal)
CPT/HCPCS: 36415; 80053; 80061; 85025

== ENCOUNTER → 2024-04-09 | Outpatient (CLI) | payer OTHER, SELFPAY ==
[2024-04-09 13:47] LABS: Anion Gap 8 (5-15); BUN 8 mg/dL (7-18); BUN/Creat Ratio 8.6 RATIO (10-20); Calcium,Total 8.9 mg/dL (8.5-10.1); Chloride 110 mmol/L (98-107); Cholesterol 172 mg/dL (200); Creatinine, Serum 0.94 mg/dL (0.55-1.02); EST Glomerular Filtration Rate 67 mL/min (>60); Est Glom Filt Rate - Afr Amer 80 mL/min (>60); Glucose 93 mg/dL (74-106); High Density Lipoprotein 47 mg/dL; Potassium 3.9 mmol/L (3.5-5.1); Sodium Level 141 mmol/L (136-145); Triglycerides 99 mg/dL; Very Low Density Lipoprotein 20 mg/dL (5-40)
== END | disposition home or self-care (01) ==
LOC: BIMLAB 09:19
PROVIDERS: PCP Internal Medicine; Referring Provider Internal Medicine; Visit Provider Internal Medicine
DX: I10 Essential (primary) hypertension (principal)
CPT/HCPCS: 36415; 80048; 80061

== ENCOUNTER → 2024-07-01 | Outpatient (CLI) | payer OTHER, SELFPAY ==
[2024-07-01 16:00] LABS: Estradiol < 5.0 pg/mL; Follicle Stimulating Hormone 73.3 mIU/mL
== END | disposition home or self-care (01) ==
PROVIDERS: PCP Internal Medicine; Referring Provider Nurse Practitioner Women's Health; Visit Provider Nurse Practitioner Women's Health
DX: N95.1 Menopausal and female climacteric states (principal)
CPT/HCPCS: 36415; 82670; 83001

== ENCOUNTER → 2024-07-12 | Outpatient (CLI) | payer OTHER, SELFPAY ==
--- NOTE | 2024-07-12 07:30 | BI_ITS ---
EXAM: SCRN MAMM (CAD)W/CRISTINA BILAT DATE: 07/12/2024 CLINICAL HISTORY: F, Age 53 y/o , SCREENING FOR BREAST CANCER BREAST CANCER RISK ASSESSMENT: Has not been calculated. TECHNIQUE: Bilateral screening digital breast tomosynthesis with 2D and 3D images. Computer aided detection. COMPARISON: Prior exam(s) dated 01/11/2022, 08/29/2020 and 08/27/2018. FINDINGS: TISSUE DENSITY: The breast tissue is composed of scattered area of fibroglandular density. Bilateral Breast Mammographic Findings: No significant masses, calcifications or other abnormalities are identified. Benign round calcifications are seen in both breasts. BI/SCRN MAMM (CAD)W/CRISTINA BILAT IMPRESSION: OVERALL FINAL ASSESSMENT: BIRADS 2 BENIGN FINDING RECOMMENDATION: Routine annual follow-up in 1 Year A letter with findings and recommendations will be mailed to the patient. Reading Location: [id number]
== END | disposition home or self-care (01) ==
LOC: OPBI 07:28
PROVIDERS: PCP Internal Medicine; Referring Provider Nurse Practitioner Women's Health; Visit Provider Nurse Practitioner Women's Health
DX: Z12.31 Encounter for screening mammogram for malignant neoplasm of breast (principal)
CPT/HCPCS: 77063; 77067